=== PATIENT | female | born 1985 | race Caucasian/White ===

== ENCOUNTER 2017-12-18 04:40 | Emergency (ER) | payer OTHER ==
[~2017-12-18 04:40] MED LIST: IBUP600T26 PO
[2017-12-18 04:48] VITALS: BP 138/91; PULSE 110; RESP 19; TEMP 98; O2SAT 100
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
[2017-12-18 05:56] LABS: ALBUMIN 4.6 GM/DL (3.4-5.0); AST (GOT) 29 U/L (15-37); BICARBONATE 23.2 MEQ/L (21.0-32.0); BLOOD UREA NITROGEN 13 MG/DL (7-18); CALCIUM 8.5 MG/DL (8.5-10.1); CHLORIDE 106 MEQ/L (98-107); GLOMERULAR FILTRATION RATE 117 ML/MIN (>89); GLUCOSE,RANDOM 87 MG/DL (74-106); SODIUM (NA) 140 MEQ/L (136-145)
[2017-12-18 05:57] LABS: ALT (GPT) 31 U/L (10-53)
[2017-12-18 05:59] LABS: ALKALINE PHOSPHATASE 74 U/L (45-117); TOTAL BILIRUBIN ADULT 0.4 MG/DL (0.2-1.0); TOTAL PROTEIN 8.1 GM/DL (6.4-8.2)
[2017-12-18 07:02] LABS: AUTOMATED NEUTROPHIL # 5.7 TH/MM3 (1.8-7.7); BASOPHIL # 0.1 TH/MM3 (0-0.2); BASOPHIL % 0.8 % (0.0-2.0); EOSINOPHIL # 0.2 TH/MM3 (0-0.4); EOSINOPHIL % 1.9 % (0.0-4.0); HEMATOCRIT 42.4 % (35.0-46.0); HEMOGLOBIN 14.7 GM/DL (11.6-15.3); LYMPH % 26.9 % (9.0-44.0); LYMPHOCYTE # 2.4 TH/MM3 (1.0-4.8); MEAN CELL VOLUME 94.7 FL (80.0-100.0); MEAN CORPUSCULAR HEMOGLOBIN 32.8 PG (27.0-34.0); MEAN CORPUSCULAR HGB CONC 34.6 % (32.0-36.0); MEAN PLATELET VOLUME 6.9 FL (7.0-11.0); MONO % 6.8 % (0.0-8.0); MONOCYTE # 0.6 TH/MM3 (0-0.9); NEUT % 63.6 % (16.0-70.0); PLATELET COUNT 292 TH/MM3 (150-450); RED BLOOD COUNT 4.48 MIL/MM3 (4.00-5.30); RED CELL DISTRIBUTION WIDTH 13.3 % (11.6-17.2)
--- NOTE | 2017-12-18 09:45 | PD ---
Physical Exam Time Seen by Provider: 09:42 Narrative See ABRAHAM Sosa initial note for history and physical. Data Data Last Documented VS Vital Signs Date Time Temp Pulse Resp B/P (MAP) Pulse Ox O2 Delivery O2 Flow Rate FiO2 12/18/17 04:48 98.0 110 19 138/91 (107) 100 Room Air Orders Orders Complete Blood Count With Diff (12/18/17 04:55) Comprehensive Metabolic Panel (12/18/17 04:55) Psych Screen (12/18/17 04:55) Drug Screen, Random Urine (12/18/17 04:55) Alcohol (Ethanol) (12/18/17 04:55) Diet Regular Basic (12/18/17 Breakfast) Labs Laboratory Tests Test 12/18/17 05:00 12/18/17 05:12 White Blood Count 9.0 TH/MM3 Red Blood Count 4.48 MIL/MM3 Hemoglobin 14.7 GM/DL Hematocrit 42.4 % Mean Corpuscular Volume 94.7 FL Mean Corpuscular Hemoglobin 32.8 PG Mean Corpuscular Hemoglobin Concent 34.6 % Red Cell Distribution Width 13.3 % Platelet Count 292 TH/MM3 Mean Platelet Volume 6.9 FL Neutrophils (%) (Auto) 63.6 % Lymphocytes (%) (Auto) 26.9 % Monocytes (%) (Auto) 6.8 % Eosinophils (%) (Auto) 1.9 % Basophils (%) (Auto) 0.8 % Neutrophils # (Auto) 5.7 TH/MM3 Lymphocytes # (Auto) 2.4 TH/MM3 Monocytes # (Auto) 0.6 TH/MM3 Eosinophils # (Auto) 0.2 TH/MM3 Basophils # (Auto) 0.1 TH/MM3 CBC Comment DIFF FINAL Differential Comment Blood Urea Nitrogen 13 MG/DL Creatinine 0.60 MG/DL Random Glucose 87 MG/DL Total Protein 8.1 GM/DL Albumin 4.6 GM/DL Calcium Level 8.5 MG/DL Alkaline Phosphatase 74 U/L Aspartate Amino Transf (AST/SGOT) 29 U/L Alanine Aminotransferase (ALT/SGPT) 31 U/L Total Bilirubin 0.4 MG/DL Sodium Level 140 MEQ/L Potassium Level 4.0 MEQ/L Chloride Level 106 MEQ/L Carbon Dioxide Level 23.2 MEQ/L Anion Gap 11 MEQ/L Estimat Glomerular Filtration Rate 117 ML/MIN Ethyl Alcohol Level 294 MG/DL Urine Opiates Screen NEG Urine Barbiturates Screen NEG Urine Amphetamines Screen NEG Urine Benzodiazepines Screen NEG Urine Cocaine Screen NEG Urine Cannabinoids Screen POS MDM Supervised Visit with CRIS: No Narrative Course See ABRAHAM Sosa initial note for history and physical. Lab results are unremarkable. patient medically cleared for psychiatric evaluation and disposition. Diagnosis Primary Impression: Medical clearance for psychiatric admission Scripts No Active Prescriptions or Reported Meds Condition: Stable Nichole Padgett December 18, 2017 09:45
--- NOTE | 2017-12-18 11:38 | PD ---
History of Present Illness Chief Complaint: Psychiatric Symptoms Time Seen by Provider: 11:15 Travel History International Travel<30 Days: No Contact w/Intl Traveler<30days: No Known affected area: No Legal Status Legal Status: Valencia Act [place] Act Signed By: Roberto Beebe History of Present Illness: Patient is a 32 y/o female, engaged , employed who called the [employer] police yesterday to help de-escalate an argument with her fiance. When the [employer] police arrived they placed her under a Valencia Act. The Valencia Act states, "Valentine told her boyfriend she was saved earlier in the evening by strangers from committing suicide. Valentine then got into an argument with her boyfriend and threatened to lay down on the railroad tracks." Patient states that she never had any suicidal ideations. Today she denies SI/HI. Alcohol level on arrival was 294. UDS was positive for cannabis. Patient states she and her fiance are trying to purchase a house and that they have been arguing. She states that the conversation just escalated and she did not know how to get the conversation under control. 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 Medical hx of asthma otherwise healthy. She is adopted and does not know any past history regarding her biological parents. She was treated at age 14 for depression in [place] and was placed on Wellbutrin. She has not been on medication since her childhood. Chart reviewed and patient discussed with NITHYA Lyle. Patient is in [facility]. She is alert and oriented. Well kept and pleasant. Fund of knowledge is normal . She has good insight and judgement. Motor and gait normal. Thought process is concrete. Mood is euthymic and she is remorseful regarding calling the [employer] Police. She has spoken with her finance while here in the hospital and they have resolved the concerns related to yesterday's arguement. Collateral : NITHYA Lyle has spoken to the father with the patient's permission, Vinny Valentine, . The couple is staying with him and he endorses that it was an argument that lead to this Valencia Act. He feels that his daughter is stable and he is willing to pick her up. Based on the patient's presentation and collateral, this patient is at low risk for self harm or harming others. She does not meet admission criteria. Will lift the Valencia Act. Will refer patient to Matthew Campbell if she is interested in counseling. Dx: Adjustment Disorder PFSH Past Medical History Asthma: Yes (AT ) Anxiety: Yes Depression: Yes (HX OF PER PATIENT) Headaches: Yes ?: Unknown : 1 Psychiatric History Psychiatric History At age 14 she was treated in [place] for depression with Wellbutrin. She no longer takes any medications. Patient is adopted and does not know any of the history related to her biological parents. Hx Psychiatric Treatment: AT AGE 13 OR 15 FOR DEPRESSION. NOTHING SINCE PER PATIENT History of Inpatient Treatment: No Social History Hx Alcohol Use: Yes (2 X'S PER WEEK) Hx Tobacco Use: Yes (1/2 PPK) Hx Substance Use: Yes ("WEED AND ALCOHOL") Substance Use Type: Alcohol, Marijuana Hx of Substance Use Treatment: No Allergies-Medications (Allergen,Severity, Reaction): Coded Allergies: erythromycin base (Unverified Allergy, Severe, Hives, 03/16/17) Reported Meds & Prescriptions Reported Meds & Active Scripts Active No Active Prescriptions or Reported Medications Mental Status Examination Appearance: Appropriate Consciousness: Alert Orientation: x4 Motor Activity: Normal gait Speech: Unremarkable Language: Adequate Fund of Knowledge: Adequate Attention and Concentration: Adequate Memory: Unremarkable Mood: Appropriate Affect: Appropriate, Euthymic Thought Process & Associations: Intact Thought Content: Appropriate Hallucination Type: None Delusion Type: None Suicidal Ideation: No Suicidal Plan: No Suicidal Intention: No Homicidal Ideation: No Homicidal Plan: No Homicidal Intention: No Insight: Adequate Judgment: Adequate MDM Medical Decision Making Assessment/Plan Patient is a 32 y/o female who was in an argument with her fiance regarding a home they are purchasing which escalated. The patient called the [place] Police and she was placed under a Valencia Act. Patient does acknowledge that she was drinking and that his may have contributed to the argument. Patient denies any SI/HI. Collateral obtained from the patient's father , Vinny Grijalva, who endorses it was an argument that escalated. He feels that his daughter is stable and he is willing to pick her up. Based on the patient's presentation and collateral , Valencia Act will be lifted. Patient is aware of the services at [facility] if needed in the future. Orders Orders Complete Blood Count With Diff (12/18/17 04:55) Comprehensive Metabolic Panel (12/18/17 04:55) Psych Screen (12/18/17 04:55) Drug Screen, Random Urine (12/18/17 04:55) Alcohol (Ethanol) (12/18/17 04:55) Diet Regular Basic (12/18/17 Breakfast) Results Vital Signs Date Time Temp Pulse Resp B/P (MAP) Pulse Ox O2 Delivery O2 Flow Rate FiO2 12/18/17 04:48 98.0 110 19 138/91 (107) 100 Room Air Laboratory Tests Test 12/18/17 05:00 12/18/17 05:12 White Blood Count 9.0 Red Blood Count 4.48 Hemoglobin 14.7 Hematocrit 42.4 Mean Corpuscular Volume 94.7 Mean Corpuscular Hemoglobin 32.8 Mean Corpuscular Hemoglobin Concent 34.6 Red Cell Distribution Width 13.3 Platelet Count 292 Mean Platelet Volume 6.9 Neutrophils (%) (Auto) 63.6 Lymphocytes (%) (Auto) 26.9 Monocytes (%) (Auto) 6.8 Eosinophils (%) (Auto) 1.9 Basophils (%) (Auto) 0.8 Neutrophils # (Auto) 5.7 Lymphocytes # (Auto) 2.4 Monocytes # (Auto) 0.6 Eosinophils # (Auto) 0.2 Basophils # (Auto) 0.1 CBC Comment DIFF FINAL Differential Comment Blood Urea Nitrogen 13 Creatinine 0.60 Random Glucose 87 Total Protein 8.1 Albumin 4.6 Calcium Level 8.5 Alkaline Phosphatase 74 Aspartate Amino Transf (AST/SGOT) 29 Alanine Aminotransferase (ALT/SGPT) 31 Total Bilirubin 0.4 Sodium Level 140 Potassium Level 4.0 Chloride Level 106 Carbon Dioxide Level 23.2 Anion Gap 11 Estimat Glomerular Filtration Rate 117 Ethyl Alcohol Level 294 Urine Opiates Screen NEG Urine Barbiturates Screen NEG Urine Amphetamines Screen NEG Urine Benzodiazepines Screen NEG Urine Cocaine Screen NEG Urine Cannabinoids Screen POS Diagnosis Primary Impression: Adjustment disorder Prescriptions No Active Prescriptions or Reported Meds Disposition: DISCHARGE HOME Condition: Stable Maryse Mosley December 18, 2017 11:38
--- NOTE | 2017-12-18 12:29 | PD ---
Physical Exam Time Seen by Provider: 12:25 LONNIE Vela, has evaluated the patient, lifted the Valencia act and cleared the patient for discharge. Data Data Last Documented VS Vital Signs Date Time Temp Pulse Resp B/P (MAP) Pulse Ox O2 Delivery O2 Flow Rate FiO2 12/18/17 04:48 98.0 110 19 138/91 (107) 100 Room Air Orders Orders Complete Blood Count With Diff (12/18/17 04:55) Comprehensive Metabolic Panel (12/18/17 04:55) Psych Screen (12/18/17 04:55) Drug Screen, Random Urine (12/18/17 04:55) Alcohol (Ethanol) (12/18/17 04:55) Diet Regular Basic (12/18/17 Breakfast) Labs Laboratory Tests Test 12/18/17 05:00 12/18/17 05:12 White Blood Count 9.0 TH/MM3 Red Blood Count 4.48 MIL/MM3 Hemoglobin 14.7 GM/DL Hematocrit 42.4 % Mean Corpuscular Volume 94.7 FL Mean Corpuscular Hemoglobin 32.8 PG Mean Corpuscular Hemoglobin Concent 34.6 % Red Cell Distribution Width 13.3 % Platelet Count 292 TH/MM3 Mean Platelet Volume 6.9 FL Neutrophils (%) (Auto) 63.6 % Lymphocytes (%) (Auto) 26.9 % Monocytes (%) (Auto) 6.8 % Eosinophils (%) (Auto) 1.9 % Basophils (%) (Auto) 0.8 % Neutrophils # (Auto) 5.7 TH/MM3 Lymphocytes # (Auto) 2.4 TH/MM3 Monocytes # (Auto) 0.6 TH/MM3 Eosinophils # (Auto) 0.2 TH/MM3 Basophils # (Auto) 0.1 TH/MM3 CBC Comment DIFF FINAL Differential Comment Blood Urea Nitrogen 13 MG/DL Creatinine 0.60 MG/DL Random Glucose 87 MG/DL Total Protein 8.1 GM/DL Albumin 4.6 GM/DL Calcium Level 8.5 MG/DL Alkaline Phosphatase 74 U/L Aspartate Amino Transf (AST/SGOT) 29 U/L Alanine Aminotransferase (ALT/SGPT) 31 U/L Total Bilirubin 0.4 MG/DL Sodium Level 140 MEQ/L Potassium Level 4.0 MEQ/L Chloride Level 106 MEQ/L Carbon Dioxide Level 23.2 MEQ/L Anion Gap 11 MEQ/L Estimat Glomerular Filtration Rate 117 ML/MIN Ethyl Alcohol Level 294 MG/DL Urine Opiates Screen NEG Urine Barbiturates Screen NEG Urine Amphetamines Screen NEG Urine Benzodiazepines Screen NEG Urine Cocaine Screen NEG Urine Cannabinoids Screen POS MDM Supervised Visit with CRIS: No Narrative Course LONNIE Salinas, has evaluated the patient, lifted the Valencia act and cleared the patient for discharge. Patient contracts safety. Denies suicidal or homicidal ideations. Patient will be provided community resource packet to [facility] for follow-up. Has friends and family for support. Patient was medically cleared by alternate provider prior to psych screening. Patient has been evaluated by psychiatry and and is now cleared for discharge. Diagnosis Primary Impression: Adjustment disorder Referrals: [facility] (Out patient) [facility] Primary Care Physician Psychiatrist [facility] Patient Instructions: General Instructions, Mood Disorders (ED) Additional Instruction: Contract safety to your self and others Follow-up with psychiatry Follow-up with primary care provider Follow-up with Matthew Bolanos Return to the emergency department immediately with worsening of symptoms Med/Other Pt SpecificInfo: No Change to Meds, No Meds Exist/No RX given Scripts No Active Prescriptions or Reported Meds Disposition: 01 DISCHARGE HOME Condition: Stable Nichole Padgett December 18, 2017 12:29
== END 2017-12-18 12:48 | disposition home or self-care (01) ==
LOC: NEPJ 04:40
DX: F43.22 Adjustment disorder with anxiety (principal); F10.129 Alcohol abuse with intoxication, unspecified; F12.90 Cannabis use, unspecified, uncomplicated; F32.9 Major depressive disorder, single episode, unspecified; Y90.8 Blood alcohol level of 240 mg/100 ml or more; Z87.891 Personal history of nicotine dependence
CPT/HCPCS: 80053; 80307; 85025; 99283

== ENCOUNTER 2017-12-25 03:38 | Inpatient (IN) | payer OTHER ==
[~2017-12-25] VITALS: Ht 167.6 cm; Wt 69.8 kg
[2017-12-25] VITALS (10 sets, daily range): BP systolic 90–132; BP diastolic 53–77; PULSE 60–88; RESP 15–25; TEMP 97.4–98.8; O2SAT 97–99
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
[2017-12-25] MEDS ORDERED: TETANUS/DIPHTHERIA TOXOID ADULT 0.5 ML VIAL IM ONE (04:15)
[2017-12-25] MEDS ORDERED: LORazepam 2 MG/ML VIAL IM ONE (04:15)
[2017-12-25] MEDS ORDERED: HALOPERIDOL LACTATE 5 MG/ML AMP IM ONE (04:15)
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
[2017-12-25] MEDS ORDERED: SODIUM CHLOR 0.9% 1000 ML INJ 1,000 ML IV SCH (05:21)
[2017-12-25] MEDS ORDERED: cefTRIAXone INJ 2,000 MG in SODIUM CHLORIDE 0.9% INJ 100 ML IV ONE (05:30)
[2017-12-25] MEDS ORDERED: FOSPHENYTOIN INJ 1,000 MGPE in SODIUM CHLORIDE 0.9% INJ 50 ML IV ONE (05:30)
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
[2017-12-25 06:57] LABS: AUTOMATED NEUTROPHIL # 13.1 TH/MM3 (1.8-7.7); BASOPHIL % 0.3 % (0.0-2.0); EOSINOPHIL % 0.3 % (0.0-4.0); HEMATOCRIT 41.2 % (35.0-46.0); HEMOGLOBIN 13.8 GM/DL (11.6-15.3); LYMPH % 8.9 % (9.0-44.0); LYMPHOCYTE # 1.4 TH/MM3 (1.0-4.8); MEAN CELL VOLUME 94.5 FL (80.0-100.0); MEAN CORPUSCULAR HEMOGLOBIN 31.7 PG (27.0-34.0); MEAN CORPUSCULAR HGB CONC 33.5 % (32.0-36.0); MEAN PLATELET VOLUME 6.7 FL (7.0-11.0); MONO % 4.4 % (0.0-8.0); MONOCYTE # 0.7 TH/MM3 (0-0.9); NEUT % 86.1 % (16.0-70.0); PLATELET COUNT 267 TH/MM3 (150-450); RED BLOOD COUNT 4.36 MIL/MM3 (4.00-5.30); RED CELL DISTRIBUTION WIDTH 13.3 % (11.6-17.2); WHITE BLOOD COUNT 15.2 TH/MM3 (4.0-11.0)
[2017-12-25] MEDS: SODIUM CHLOR 0.9% 1000 ML INJ 1,000 ML IV SCH ×3 (07:13→21:40)
[2017-12-25] MEDS ORDERED: NURSING INFORMATION XX SCH (07:15)
[2017-12-25] MEDS ORDERED: SENNOSIDES 8.6 MG TAB PO PRN (07:15)
[2017-12-25] MEDS ORDERED: METOCLOPRAMIDE HCL 10 MG/2 ML VIAL IV PUSH PRN (07:15)
[2017-12-25] MEDS ORDERED: MAGNESIUM HYDROXIDE SUSP 30 ML CUP PO PRN (07:15)
[2017-12-25] MEDS ORDERED: CHLORHEXIDINE GLUCONATE 2 % 1 PACK (2 CLOTHS) TOP PRN (07:15)
[2017-12-25] MEDS ORDERED: BISACODYL 10 MG SUPP RECTAL PRN (07:15)
[2017-12-25] MEDS ORDERED: LACTULOSE SYRUP 20 GM/30 ML CUP PO PRN (07:15)
[2017-12-25 07:28] LABS: BICARBONATE 24.6 MEQ/L (21.0-32.0); CALCIUM 8.4 MG/DL (8.5-10.1); CREATININE 0.62 MG/DL (0.50-1.00)
[2017-12-25] MEDS ORDERED: ACETAMINOPHEN 1000 MG/100 ML 100 ML IV PRN (07:30)
[2017-12-25] MEDS ORDERED: SODIUM CHLOR 0.9% 1000 ML INJ 1,000 ML IV ONE ×2 (07:30→10:00)
[2017-12-25] MEDS ORDERED: IOHEXOL 350 MG/ML 10 ML VIAL (for RAD DIAG) IVCONTRAST ONE (08:17)
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
[2017-12-25] MEDS: DOCUSATE SODIUM 50 MG/SENNA 8.6 MG TAB PO SCH ×2 (09:00→20:02)
[2017-12-25 11:06] LABS: PROTHROMBIN TIME - PATIENT 10.5 SEC (9.8-11.6)
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
[2017-12-26] VITALS (11 sets, daily range): BP systolic 116–139; BP diastolic 60–78; PULSE 52–72; RESP 14–28; TEMP 97.9–98.7; O2SAT 95–98
[2017-12-26 03:30] LABS: AUTOMATED NEUTROPHIL # 8.4 TH/MM3 (1.8-7.7); BASOPHIL % 0.4 % (0.0-2.0); EOSINOPHIL % 0.2 % (0.0-4.0); HEMATOCRIT 33.7 % (35.0-46.0); HEMOGLOBIN 11.7 GM/DL (11.6-15.3); LYMPHOCYTE # 1.3 TH/MM3 (1.0-4.8); MEAN CELL VOLUME 93.5 FL (80.0-100.0); MEAN CORPUSCULAR HEMOGLOBIN 32.5 PG (27.0-34.0); MEAN CORPUSCULAR HGB CONC 34.8 % (32.0-36.0); MEAN PLATELET VOLUME 6.9 FL (7.0-11.0); MONO % 9.1 % (0.0-8.0); NEUT % 78.3 % (16.0-70.0); PLATELET COUNT 238 TH/MM3 (150-450); RED CELL DISTRIBUTION WIDTH 12.9 % (11.6-17.2); WHITE BLOOD COUNT 10.7 TH/MM3 (4.0-11.0)
[2017-12-26 03:55] LABS: BICARBONATE 24.1 MEQ/L (21.0-32.0); CALCIUM 7.9 MG/DL (8.5-10.1); CREATININE 0.48 MG/DL (0.50-1.00)
[2017-12-26] MEDS ORDERED: CHLORHEXIDINE GLUCONATE 2 % 1 PACK (2 CLOTHS) TOP SCH (04:00)
[2017-12-26] MEDS: SODIUM CHLOR 0.9% 1000 ML INJ 1,000 ML IV SCH (06:16)
[2017-12-26] MEDS: ACETAMINOPHEN 325 MG TAB PO PRN ×2 (06:21→13:45)
[2017-12-26] MEDS: DOCUSATE SODIUM 50 MG/SENNA 8.6 MG TAB PO SCH (08:57)
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
[2017-12-26] MEDS ORDERED: POTASSIUM CHLORIDE 20 MEQ CONTROLLED RELEASE TAB PO ONE (10:15)
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
[2017-12-26] MEDS ORDERED: MULTIVITAMIN INJ 10 ML, THIAMINE INJ 100 MG, FOLIC ACID INJ 1 MG in SODIUM CHLORID 0.9%... IV SCH (12:00)
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
== END 2017-12-26 21:19 | disposition left against medical advice (07) | DRG 84 ==
LOC: NEPE 03:38 → NEDA 06:43 → N03A 08:33
PROVIDERS: ADMIT Surgery Trauma Surgery; ATTEND Surgery Trauma Surgery
DX: S06.5X9A Traumatic subdural hemorrhage with loss of consciousness of unspecified duration, initial encounter (principal); G93.89 Other specified disorders of brain; K76.89 Other specified diseases of liver; S02.0XXA Fracture of vault of skull, initial encounter for closed fracture; S02.119A Unspecified fracture of occiput, initial encounter for closed fracture; F32.9 Major depressive disorder, single episode, unspecified; F41.9 Anxiety disorder, unspecified; F12.90 Cannabis use, unspecified, uncomplicated; J45.909 Unspecified asthma, uncomplicated; Y90.8 Blood alcohol level of 240 mg/100 ml or more; R40.2413 Glasgow coma scale score 13-15, at hospital admission; F10.129 Alcohol abuse with intoxication, unspecified; F17.210 Nicotine dependence, cigarettes, uncomplicated; V48.4XXA Person boarding or alighting a car injured in noncollision transport accident, initial encounter; Y92.410 Unspecified street and highway as the place of occurrence of the external cause; Z23 Encounter for immunization; Z88.1 Allergy status to other antibiotic agents
CPT/HCPCS: 70450; 71045; 71260; 72100; 72125; 72170; 74177; 80048; 80307; 84702; 85025; 85610; 85730; 86850; 86900; 86901; 87641; 90471; 90714; 96372; J0696; J1630; J2060; J3411; J7030; J7040; Q2009; Q9967